=== PATIENT | male | born 1960 | race Caucasian/White ===

== ENCOUNTER 2017-07-05 10:18 | Day surgery (SDC) | payer OTHER ==
[~2017-07-05] VITALS: Ht 177.8 cm; Wt 108.9 kg
[~2017-07-05 10:18] MED LIST: ALLOPURINOL300 MG PO; ANDRODERM5 MG PO; ANTACID650 MG PO; APRESOLINE10 MG PO; AUGMENTIN875 MG PO; AVAPRO150 MG PO; AVAPRO300 MG PO; AXIRON30 MG/1.5 TD; AXIRON90 ML TD; BYSTOLIC5 MG PO; CELLCEPT500 MG PO; COSOPT EYE DROPS5 ML BOTH EYES; CRESTOR5 MG PO; DIAZEPAM5 MG PO; FISH OIL 1,0001 EAC7 PO; LASIX20 MG PO; MIACALCIN200 INTUNI IM; MIACALCIN4 ML NS; NABI650T PO; NIACOR500 MG PO; OMEGA 3 1,0001 EACH PO; OXYCODONE HCL5 MG PO; PARLODEL PO; PARLODEL2.5 MG PO; PREDNISONE5 M2 PO; PREDNISONE5 MG PO; PREVACID30 MG PO; PROGRAF0.5 MG PO; SOOLANTRA30 GM TP; STRESS FORMULA1 EAC9 PO; TOPROL XL25 MG PO; TOPROL XL50 MG PO; TRICOR145 MG PO; TRUSOPT 2%200 DROP/1 BOTH EYES; VITAMIN D31000 UNIT PO; [UNRECOGNIZED DRUG - MIXTURE] PO
[2017-07-05 10:52] VITALS: BP 140/70
[2017-07-05 16:10] VITALS: BP 172/85
[2017-07-05 17:38] VITALS: BP 165/84
== END 2017-07-05 17:40 | disposition home or self-care (01) ==
LOC: SDC 10:18 → EDSTATUS 14:56 → 2SOUTH 14:56 → SDC 14:58
DX: H33.21 Serous retinal detachment, right eye (principal); I12.0 Hypertensive chronic kidney disease with stage 5 chronic kidney disease or end stage renal disease; N18.6 End stage renal disease; Z99.2 Dependence on renal dialysis; K21.9 Gastro-esophageal reflux disease without esophagitis; E78.00 Pure hypercholesterolemia, unspecified; Z94.0 Kidney transplant status; E66.9 Obesity, unspecified; Z68.34 Body mass index [BMI] 34.0-34.9, adult; Z87.891 Personal history of nicotine dependence
CPT/HCPCS: J0690; J0713; J2250; J2405; J2710; J3010; J3300